=== PATIENT | male | born 1945 | race Caucasian/White ===

== ENCOUNTER → 2017-07-11 | Day surgery (SDC) | payer OTHER ==
[~2017-07-11] VITALS: Ht 175.3 cm; Wt 80.7 kg
[~2017-07-11] MED LIST: *morphine SULFATE 8 MG/ML PERIprocedure ONLY ONE; ACETAMINOPHEN 1000 MG/100 ML 100 ML IV ONE; AMLO5TAB2 PO; ATOR10TA15 PO; BIOTCAP PO; CHLORHEXIDINE GLUCONATE 2 % 1 PACK (2 CLOTHS) TOPICAL PRN; CHOL5000 PO; DEXAMETHASONE SOD PHOS 4 MG/ML VIAL IV ONE; DO NOT ADM ANY ANTICOAGULANT DRUGS PRN; ENAL20TA PO; GENTAMICIN SULFATE 80 MG/2 ML VIAL ONE; GLYCOPYRROLATE 1 MG/5 ML SYRINGE IV PUSH ONE; LACTATED RINGER'S 1000 ML IV PRN; LIDOCAINE HCL 1% PF 5 ML SYRINGE OTHER ONE; METF1000 PO; METO50TA PO; METOPROLOL TARTRATE 25 MG TAB PO PRN; MIDAZOLAM HCL 2 MG/2 ML VIAL IV ONE; MORPHINE SULFATE 4 MG/ML INJ IV ONE; MORPHINE SULFATE 4 MG/ML INJ IV PUSH PRN; NEOSTIGMINE 3 MG/3 ML SYR IV ONE; ONDANSETRON HCL 4 MG/2 ML VIAL IV PUSH ONE; ONDANSETRON HCL 4 MG/2 ML VIAL IV PUSH PRN; PERC5TAB12 PO; PHENYLEPH/NS 1000 MCG/10 ML SYR IV ONE; POVIDONE IODINE 5% (ANTISEPSIS KIT) 4 APPLICATIONS EACH NARE PRN; PROPOFOL 200 MG/20 ML AMP IV ONE; ROCURONIUM INJ 50 MG/5 ML SYRINGE IV PUSH ONE; SODIUM CHLORID 0.9% 500 ML IV PRN; SODIUM CHLORIDE 0.9% FLUSH 10 ML FLUSH IV FLUSH PRN; SODIUM CHLORIDE 0.9% FLUSH 10 ML FLUSH IV FLUSH SCH; ceFAZolin INJ 1,000 MG VIAL IV ONE; ePHEDrine/NS 25 MG/5 ML SYR IV ONE; oxyCODONE/ACETAMINOPHEN 5 MG/325 MG TAB PO PRN
[2017-07-11 12:00] LABS: AUTOMATED NEUTROPHIL # 5.8 TH/MM3 (1.8-7.7); BASOPHIL # 0.1 TH/MM3 (0-0.2); BASOPHIL % 0.9 % (0.0-2.0); EOSINOPHIL # 0.2 TH/MM3 (0-0.4); EOSINOPHIL % 2.3 % (0.0-4.0); HEMATOCRIT 40.1 % (39.0-51.0); HEMO FLAGS DIFF FINAL; LYMPH % 14.8 % (9.0-44.0); LYMPHOCYTE # 1.2 TH/MM3 (1.0-4.8); MEAN CELL VOLUME 85.8 FL (80.0-100.0); MEAN CORPUSCULAR HEMOGLOBIN 29.7 PG (27.0-34.0); MEAN CORPUSCULAR HGB CONC 34.6 % (32.0-36.0); MONO % 8.9 % (0.0-8.0); NEUT % 73.1 % (16.0-70.0); PLATELET COUNT 262 TH/MM3 (150-450); RED BLOOD COUNT 4.67 MIL/MM3 (4.50-5.90); RED CELL DISTRIBUTION WIDTH 15.6 % (11.6-17.2); WHITE BLOOD COUNT 7.9 TH/MM3 (4.0-11.0)
--- NOTE | 2017-07-11 12:32 | RADRPT ---
EXAM DATE/TIME: 07/11/2017 11:51 [facility] COMPARISON: No previous studies available for comparison. INDICATIONS : Preoperative chest x-ray. MEDICAL HISTORY : Unobtainable. SURGICAL HISTORY : None. ENCOUNTER: Initial ACUITY: 1 day PAIN SCORE: 0/10 LOCATION: Bilateral chest FINDINGS: The heart is enlarged. No pulmonary vascular congestion or focal infiltrate is noted. Minimal left ba silar atelectasis and/or scarring is noted. Degenerative changes are noted throughout the thoracic sp ine. CONCLUSION: 1. Minimal left basilar atelectasis and/or scarring. 2. Cardiomegaly. 3. Degenerative changes involving the thoracic spine. Rolando Mensah MD on July 11, 2017 at 12:29 Board Certified Radiologist. This report was verified electronically.
--- NOTE | 2017-07-11 14:46 | PD.OP ---
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 Surgeon: Don Mason Melter Supervisor [employer](s): Hospital staff Resident Surgeon: None Operation and Findings: DESCRIPTION OF PROCEDURE: The LEFT lower extremity, operative site was marked and the planned procedure confirmed with the patient awake prior to administration of anesthesia. The LEFT lower extremity was prepped with Cloraprep and draped in the usual sterile manner. The limb was exsanguinated with Esmarch bandage and pneumatic tourniquet was inflated to 300 mmHg. Again, before making the incision, a timeout was done to verify the patients name, side, consent and the procedure with all members of the surgical team. With the patient supine and his knee extened, a 4 cm anterior infrapatella incision was made. Dissection taken down through the subcutaneous tissue onto the tibial tubercle and patellar tendon. There I found a significant displaced tibial tubercle fracture with fibrous nonunion as well as partly detached patella tendon. The medial half of the tendon was elevated off the tibial tubercle to allow access and direct visualization of the fracture site. Using a rongeur, the fibrous soft tissue was removed down to bleeding bone on both the anterior tibial surface as well as the tibial tubercle fragment. Cancellus bone chips was used to fill the void. The tibia tubercle fragment was compressed using a large bone clamp. Reduction at the articular surface and the anterior tibia cortex was confirmed and found to be satisfactory with fluoroscopy. 2 partially threaded 4.0 mm screws with washers were used just below the articular surface to provide compression. That fixation was further augmented against distraction forces with an anterior one third tubular plate fashioned over the anterior tibia with 1 screw securely into the distal tip of the tibial tubercle. The final x-rays, AP and lateral, were checked to ensure that all implants were safely placed and that the alignment was good. The wound was copiously irrigated. The were closed with 0-vicryl in the tendon 2-0 vicryl in the subcutaneous tissue and 2-0 nylon in the skin. During closure, care was taken to cover the hardware. The patients compartments were soft and the skin was closed without much tension. A sterile dressing was applied. The patient left the operating room with good pulses in the foot and stable vital signs. Don Mason Jr., MD Jul 11, 2017 14:46
--- NOTE | 2017-07-11 16:24 | RADRPT ---
EXAM DATE/TIME: 07/11/2017 14:27 [facility] COMPARISON: No previous studies available for comparison. INDICATIONS : ORIF of the left tibial tuberosity. MEDICAL HISTORY : Hypertension. Diabetes mellitus type II. SURGICAL HISTORY : None. ENCOUNTER: Initial ACUITY: 1 day PAIN SCORE: Non-responsive. LOCATION: Left proximal tibia. FINDINGS: 2 spot fluoroscopic images obtained in the operating room during a procedure demonstrate placement of 2 anterior cortical screws with washers through the proximal tibial plateau. There is a vertically o riented anterior tibial sideplate with 3 interlocking cortical screws traversing the tibial tuberosit y. CONCLUSION: Spot fluoroscopic images obtained following proximal tibia ORIF. Uriel Ashby MD on July 11, 2017 at 16:21 Board Certified Radiologist. This report was verified electronically.
[2017-07-11 16:25] VITALS: BP 181/82; PULSE 94; RESP 16; TEMP 97.8; O2SAT 96
--- NOTE | 2017-07-12 17:57 | EKG ---
Date Performed: 07/11/2017 Time Performed: 11:24:24 PTAGE: 71 years EKG: Sinus rhythm LEFT ANTERIOR FASCICULAR BLOCK MINIMAL VOLTAGE CRITERIA FOR LVH, CONSIDER NORMAL VARIANT ABNORMAL EC G NO PREVIOUS TRACING DOCTOR: Gurwinder Patten Interpretating Date/Time 07/12/2017 17:56:12
== END | disposition home or self-care (01) ==
LOC: HSDC 10:52
PROVIDERS: ATTEND Orthopaedic Surgery
DX: S82.142A Displaced bicondylar fracture of left tibia, initial encounter for closed fracture (principal); S86.812A Strain of other muscle(s) and tendon(s) at lower leg level, left leg, initial encounter; I10 Essential (primary) hypertension; E11.9 Type 2 diabetes mellitus without complications; Z79.84 Long term (current) use of oral hypoglycemic drugs
CPT/HCPCS: 01480; 27380; 27720; 71010; 73590; 76000; 85025; 93005; C1713; J0131; J0690; J1100; J1580; J2250; J2270; J2370; J2405; J2710; J3010; J7120; L1830